=== PATIENT | female | born 1955 | race Caucasian/White ===

== ENCOUNTER → 2016-06-17 | Outpatient (CLI) | payer OTHER ==
[~2016-06-17] MED LIST: ALEN1TAB21 PO; ASCO250T4 PO; ATOR-26 PO; CALC600T9 PO; CLZ750 PO; EPP3 IM; EPP3/2 IM; MULT-506 PO; PRED20TA PO; UNABLE
--- NOTE | 2016-06-17 16:52 | MAMMOGRAPHY REPORT ---
BILATERAL DIGITAL SCREENING MAMMOGRAM WITH CAD: 06/17/2016 CLINICAL HISTORY: Routine screening. Patient has no complaints. TECHNIQUE: Bilateral CC and MLO views were obtained. Current study was also evaluated with a Comput er Aided Detection (CAD) system. COMPARISON: Comparison is made to exams dated: 06/15/2015 mammogram, 06/13/2014 mammogram, 04/19/2013 mammogram, 04/16/2012 mammogram, 04/15/2011 mammogram, and 04/08/2010 mammogram - [facility]. BREAST COMPOSITION: The tissue of both breasts is heterogeneously dense, which may obscure small ma sses. FINDINGS: There are benign coarse calcifications bilaterally. No suspicious mass, architectural dis tortion or cluster of suspicious microcalcifications is seen. IMPRESSION: ACR BI-RADS CATEGORY 1: NEGATIVE There is no mammographic evidence of malignancy. A 1 year screening mammogram is recommended. The p atient will receive written notification of the results. Approximately 10% of breast cancers are not detected with mammography. A negative mammographic repor t should not delay biopsy if a clinically suggestive mass is present. Lupis Lerner M.D. ay/:06/17/2016 16:31:49 Mohs Surgeon: Faby WINTER(Amelia)(Ugo), [facility] letter sent: Normal 1/2 BI-RADS Code: ACR BI-RADS Category 1: Negative
== END | disposition home or self-care (01) ==
LOC: C.MAMM 09:58
PROVIDERS: ATTEND Nurse Practitioner Adult Health
DX: Z12.31 Encounter for screening mammogram for malignant neoplasm of breast (principal)

== ENCOUNTER → 2016-07-25 | Day surgery (SDC) | payer OTHER ==
[2016-07-15 11:21] VITALS: Ht 157.5 cm; Wt 59.1 kg
[~2016-07-25] VITALS: Ht 157.5 cm; Wt 59.1 kg
[~2016-07-25] MED LIST changes: -EPP3 IM; +LIDOCAINE HCL 2% 2 ML VIAL (20MG/ML) ONE; -PRED20TA PO; +PROPOFOL IV EMULSION 10 MG/ML 20 ML VIAL IV ONE; -UNABLE
--- NOTE | 2016-07-25 14:07 | Endo History and Physical ---
History & Physical Date of Service: Jul 25, 2016. Chief Complaint: history of ulcerative colitis Referring Physician: Ramón LEBRON History of Present Illness For colonoscopy Past Surgical History Hx Cardiac Surgery: No Hx Internal Defibrillator: No Hx Pacemaker: No Hx Abdominal Surgery: Yes (APPY) Hx of Implantable Prosthesis: No Hx Post-Op Nausea and Vomiting: No Hx Cancer Surgery: Yes (SKIN CANCER REMOVAL) Hx Thoracic Surgery: No Hx Orthopedic: No Hx Urinary Tract Surgery: No Family History Colon CA, IBD Social History Smoking Status: Former Smoker Hx Substance Use: No Hx Alcohol Use: No Allergies Coded Allergies: BEE STING (Verified Allergy, Severe, ANAPHLAXIS, 07/25/16) NO KNOWN DRUG ALLERGIES (Verified Allergy, Unknown, ., 07/15/16) Nickel (Verified Allergy, Unknown, RASH, 07/15/16) Current Medications Reported Home Medications Medications Dose Route/Sig Max Daily Dose Days Date Category Dose Instructions Epipen (Epinephrine) 0.3 Mg/0.3 Ml Inj 0.3 Mg IM UD PRN 07/15/16 Reported Vitamin C (Ascorbic Acid) 250 Mg Tab 1 Tab PO QAM 07/15/16 Reported Calcium + D (Calcium Carbonate-Vitamin D) 1 Tab Tab 1 Tab PO QAM 07/15/16 Reported Multivitamin (Multivitamins) Tab 1 Tab PO QAM 07/15/16 Reported Colazal (Balsalazide) 750 Mg Cap 4 Tabs PO BID 07/15/16 Reported Lipitor (Atorvastatin Calcium) 80 Mg Tab 80 Mg PO QPM 07/15/16 Reported Alendronate Sodium 35 Mg Tab 1 Tab PO WK 07/15/16 Reported THURSDAY AM Vital Signs Weight (Kilograms): 59.09 Height (Feet): 5 Height (Inches): 2 Date Time Temp Pulse Resp B/P (MAP) Pulse Ox O2 Delivery O2 Flow Rate FiO2 07/25/16 13:03 36.5 68 18 130/67 97 Room Air Physical Exam General Appearance: WD/WN Respiratory/Chest: Respiratory effort: no dyspnea Cardiovascular: Heart Auscultation: RRR Abdomen: Inspection & Palpation: soft (UC for surveillance colonoscopy) Assessment and Plan UC for surveillance colonoscopy
--- NOTE | 2016-07-25 14:35 | Discharge Instructions ---
Endoscopy Patient Instructions Date / Procedure(s) Performed Jul 25, 2016. Colonoscopy Allergy Information Coded Allergies: BEE STING (Verified Allergy, Severe, ANAPHLAXIS, 07/25/16) NO KNOWN DRUG ALLERGIES (Verified Allergy, Unknown, ., 07/15/16) Nickel (Verified Allergy, Unknown, RASH, 07/15/16) Discharge Date / Findings Jul 25, 2016. diverticulosis, polyp, surveillance biopsies Medication Instructions Stopped Medication(s): stopped all meds on Thursday Restart Stopped Medication(s): resume meds Reported Home Medications Medications Dose Route/Sig Max Daily Dose Days Date Category Dose Instructions Epipen (Epinephrine) 0.3 Mg/0.3 Ml Inj 0.3 Mg IM UD PRN 07/15/16 Reported Vitamin C (Ascorbic Acid) 250 Mg Tab 1 Tab PO QAM 07/15/16 Reported Calcium + D (Calcium Carbonate-Vitamin D) 1 Tab Tab 1 Tab PO QAM 07/15/16 Reported Multivitamin (Multivitamins) Tab 1 Tab PO QAM 07/15/16 Reported Colazal (Balsalazide) 750 Mg Cap 4 Tabs PO BID 07/15/16 Reported Lipitor (Atorvastatin Calcium) 80 Mg Tab 80 Mg PO QPM 07/15/16 Reported Alendronate Sodium 35 Mg Tab 1 Tab PO WK 07/15/16 Reported THURSDAY AM Provider Instructions Activity Restrictions - No exercising or heavy lifting for 24 hours. - Do not drink alcohol the day of the procedure. - Do not drive a car or operate machinery until the day after the procedure. - Do not make any important decisions or sign important papers in 24 hours after the procedure. Following Day: - Return to full activity which may include returning to work/school. Diet Start your diet with liquids and light foods (jello, soup, juice, toast). Then eat your usual diet if not nauseated. Treatment For Common After Affects For mild abdominal pain, bloating, or excessive gas: - Rest - Eat lightly - Lie on right side Follow-Up Information Follow-up with Ramón LEBRON as scheduled Anesthesia Information What You Should Know You have had a procedure that required some medicine to reduce anxiety and discomfort. This treatment is called moderate sedation. After receiving the treatment, you may be sleepy, but you will be able to breathe on your own. The effects of the treatment may last for several hours. Follow these instructions along with Activity/Diet recommendations noted above: * Do NOT do anything where dizziness or clumsiness would be dangerous. * Rest quietly at home today, then you can be up and about tomorrow. * Have a responsible person stay with you the rest of today. * You may have had an I.V. today. If so, you may take the dressing off later today. Recommendations Call your doctor if: * Trouble breathing * Continuous vomiting for more than 24 hours * Temperature above 101 degrees * Severe abdominal pain or bloating * Pain not relieved by pain medicine ordered * There is increased drainage or redness from any incision * A large amount of rectal bleeding greater than 2-3 tablespoons. (If you had a polyp/s removed or have hemorrhoids, a small amount of blood - from the rectum is to be expected.) * You have any unanswered questions or concerns. IN THE EVENT OF A SERIOUS EMERGENCY, GO TO THE NEAREST EMERGENCY ROOM Your discharge instructions were prepared by provider Justino Cervantes. Patient Instructions Signature Page Ritika Bardales Patient (or Guardian) Signature/Date: I have read and understand the instructions given to me by my caregivers. Caregiver/RN/Doctor Signature/Date: The above-named patient and/or guardian has received patient instructions on this date. + Original Patient Signature Page (only) stays with chart. Please make copy for patient.
--- NOTE | 2016-07-25 14:43 | GI REPORT ---
Procedure Date: 07/25/2016 2:07 PM Procedure: Colonoscopy Indications: Chronic ulcerative pancolitis Medicines: Propofol total dose 270 mg IV, Lidocaine 40 mg IV Complications: No immediate complications. Estimated Blood Loss: Estimated blood loss was minimal. Procedure: Pre-Anesthesia Assessment: - Prior to the procedure, a History and Physical was performed, and patient medications, allergies and sensitivities were reviewed. The patient's tolerance of previous anesthesia was reviewed. - The risks and benefits of the procedure and the sedation options and risks were discussed with the patient. All questions were answered and informed consent was obtained. After I obtained informed consent, the scope was passed under direct vision. Throughout the procedure, the patient's blood pressure, pulse, and oxygen saturations were monitored continuously. The scope was introduced through the anus and advanced to the cecum, identified by appendiceal orifice and ileocecal valve. The colonoscopy was performed without difficulty. The patient tolerated the procedure well. The quality of the bowel preparation was good. Findings: A 3 mm polyp was found in the cecum. The polyp was sessile. The polyp was removed with a cold biopsy forceps. Resection and retrieval were complete. Estimated blood loss was minimal. A few diverticula were found in the sigmoid colon. No active colitis. The cecum appeared normal. Biopsies were taken with a cold forceps for histology. The ascending colon appeared normal. Biopsies were taken with a cold forceps for histology. Normal mucosa was found at the hepatic flexure. Biopsies were taken with a cold forceps for histology. Normal mucosa was found in the transverse colon. Biopsies were taken with a cold forceps for histology. Normal mucosa was found at the splenic flexure. Biopsies were taken with a cold forceps for histology. Normal mucosa was found in the descending colon. Biopsies were taken with a cold forceps for histology. Normal mucosa was found in the sigmoid colon. Biopsies were taken with a cold forceps for histology. Normal mucosa was found in the rectum. Biopsies were taken with a cold forceps for histology. Impression: - One 3 mm polyp in the cecum, removed with a cold biopsy forceps. Resected and retrieved. - Diverticulosis in the sigmoid colon. - The cecum is normal. Biopsied. - The ascending colon is normal. Biopsied. - Normal mucosa at the hepatic flexure. Biopsied. - Normal mucosa in the transverse colon. Biopsied. - Normal mucosa at the splenic flexure. Biopsied. - Normal mucosa in the descending colon. Biopsied. - Normal mucosa in the sigmoid colon. Biopsied. - Normal mucosa in the rectum. Biopsied. Recommendation: - Discharge patient to home (ambulatory). - Continue present medications. - Await pathology results. - Return to primary care physician PRN. Justino Cervantes M.D. Justino Cervantes MD 07/25/2016 2:41:59 PM This report has been signed electronically. Note Initiated On: 07/25/2016 2:07 PM I attest to the content of the Intraoperative Record and orders documented therein, exceptions below
--- NOTE | 2016-07-25 14:48 | Anesthesiology Progress Note ---
Anesthesia Post Op Note Date & Time Jul 25, 2016 at 14:48 Vital Signs Pain Intensity: 0 Vital Signs Past 12 Hours Date Time Temp Pulse Resp B/P (MAP) Pulse Ox O2 Delivery O2 Flow Rate FiO2 07/25/16 14:35 68 16 112/71 98 Room Air 07/25/16 13:03 36.5 68 18 130/67 97 Room Air Notes Mental Status: alert / awake / arousable, participated in evaluation Pt Amnestic to Procedure: Yes Nausea / Vomiting: adequately controlled Pain: adequately controlled Airway Patency, RR, SpO2: stable & adequate BP & HR: stable & adequate Hydration State: stable & adequate Anesthetic Complications: no major complications apparent
[2016-07-25 15:05] VITALS: BP 139/84; PULSE 70; O2SAT 100
== END | disposition home or self-care (01) ==
LOC: C.GI 12:47
PROVIDERS: ATTEND Internal Medicine Gastroenterology
DX: D12.0 Benign neoplasm of cecum (principal); Z87.19 Personal history of other diseases of the digestive system; K57.30 Diverticulosis of large intestine without perforation or abscess without bleeding; Z80.0 Family history of malignant neoplasm of digestive organs; Z83.79 Family history of other diseases of the digestive system; Z87.891 Personal history of nicotine dependence; Z79.899 Other long term (current) drug therapy

== ENCOUNTER → 2017-06-19 | Outpatient (CLI) | payer OTHER ==
[~2017-06-19] MED LIST changes: -ALEN1TAB21 PO; +ALEN35TA42 PO; -LIDOCAINE HCL 2% 2 ML VIAL (20MG/ML) ONE; -PROPOFOL IV EMULSION 10 MG/ML 20 ML VIAL IV ONE
--- NOTE | 2017-06-22 07:46 | MAMMOGRAPHY REPORT ---
BILATERAL DIGITAL SCREENING MAMMOGRAM TOMOSYNTHESIS WITH CAD: 06/19/2017 CLINICAL HISTORY: Routine screening. Patient has no complaints. TECHNIQUE: Breast tomosynthesis in addition to standard 2D mammography was performed. Current study was also evaluated with a Computer Aided Detection (CAD) system. COMPARISON: Comparison is made to exams dated: 06/17/2016 mammogram, 06/15/2015 mammogram, 06/13/2014 m ammogram, 04/19/2013 mammogram, 04/16/2012 mammogram, and 04/15/2011 mammogram - [facility]. BREAST COMPOSITION: The tissue of both breasts is heterogeneously dense, which may obscure small mas ses. FINDINGS: No suspicious masses, calcifications, or areas of architectural distortion are noted in ei ther breast. There has been no significant interval change compared to prior exams. Bilateral asymme tries and scattered bilateral benign-appearing calcifications are not significantly changed. IMPRESSION: ACR BI-RADS CATEGORY 2: BENIGN There is no mammographic evidence of malignancy. A 1 year screening mammogram is recommended. The pa tient will receive written notification of the results. Approximately 10% of breast cancers are not detected with mammography. A negative mammographic report should not delay biopsy if a clinically suggestive mass is present. Azalia Ayala M.D. ah/:06/19/2017 16:53:37 Drug Abuse Technician: Lupis PENDLETON)(M), [facility] letter sent: Normal 1/2 BI-RADS Code: ACR BI-RADS Category 2: Benign
== END | disposition home or self-care (01) ==
LOC: C.MAMM 09:08
PROVIDERS: ATTEND Nurse Practitioner Adult Health
DX: Z12.31 Encounter for screening mammogram for malignant neoplasm of breast (principal)